=== PATIENT | male | born 1935 | race Caucasian/White ===

== ENCOUNTER 2016-12-16 10:55 | Emergency (ER) | payer MEDICARE, OTHER ==
[~2016-12-16 10:55] MED LIST: ASAB PO; CALTRA600D PO; CLARIT10 PO; FISH OIL1200 MG PO; GLUCPH PO; I10 PO; LORTAB 5 PO; MICROZIDE PO; NIACIN 500 PO; VASOTEC20 MG PO; VITAMIN D400 UNI1 PO
== END 2016-12-16 11:02 | disposition home or self-care (01) ==
LOC: ER 10:55
PROC: 0HCLXZZ Extirpation of Matter from Left Lower Leg Skin, External Approach (ICD-10-PCS; principal; 2016-12-16)
DX: S81.822A Laceration with foreign body, left lower leg, initial encounter (principal); I10 Essential (primary) hypertension; Z88.0 Allergy status to penicillin; Z79.84 Long term (current) use of oral hypoglycemic drugs; Z79.82 Long term (current) use of aspirin; Z79.899 Other long term (current) drug therapy
CPT/HCPCS: 73590-LT; 90471; 90714; 99283